=== PATIENT | female | born 1945 | race Caucasian/White ===

== ENCOUNTER → 2017-10-15 | Outpatient (CLI) | payer MEDICARE, OTHER | LOC: M.RAD 10-02 13:20 | DX: Z12.31 Encounter for screening mammogram for malignant neoplasm of breast (principal); M85.88 Other specified disorders of bone density and structure, other site; E28.8 Other ovarian dysfunction; N91.2 Amenorrhea, unspecified; Z78.0 Asymptomatic menopausal state ==

== ENCOUNTER → 2018-09-09 | Outpatient (CLI) | payer MEDICARE, OTHER ==
[2018-09-09 12:53] LABS: CREATININE 0.9 mg/dL (0.6-1.3)
== END ==
LOC: M.LAB 09-04 12:37
PROVIDERS: Orthopaedic Surgery
DX: M19.031 Primary osteoarthritis, right wrist (principal); M67.431 Ganglion, right wrist; G56.01 Carpal tunnel syndrome, right upper limb

== ENCOUNTER → 2018-11-03 | Day surgery (SDC) | payer MEDICARE, OTHER ==
[~2018-11-03] MED LIST: NORCO 5-325 TA1 EACH PO
--- NOTE | ~2018-11-03 | OP ---
[address] [address] OPERATIVE REPORT Name: DANNY WHITFIELD Blanca Room: [facility]#: [id number] Admission: 11/03/18 Attend Phys: Bipin Robbins DO Discharge: Date of : 49 Report #: [id number] THIS REPORT FOR: //name// CC: Bipin Melgoza DATE OF SERVICE: 11/03/2018 PREOPERATIVE DIAGNOSIS: Right volar ganglion cyst. POSTOPERATIVE DIAGNOSIS: Right volar ganglion cyst. PROCEDURE: Excision of right volar ganglion cyst. SURGEON: Bipin Robbins DO. TEACHER DRAMATICS: Lluvia Valladares DO. ANESTHESIA: General. ANTIBIOTICS: Ancef IV preoperatively. BLOOD LOSS: 10 mL. FLUIDS: 500 mL lactated Ringer's. COMPLICATIONS: None. SPECIMENS: Ganglion cyst sent for pathology and confirmed upon timeout. DRAINS: None. CONDITION: The patient is stable to PACU. INDICATIONS FOR PROCEDURE: The patient is a 72-year-old female who presents to [facility] for excision of volar ganglion cyst I have seen around several times in clinic. We went over treatment options with her as well as risks and complications associated with surgery. She wished to have surgery. Please see previous notes for full details of our discussion. She gave verbal and written consent to proceed. DESCRIPTION OF PROCEDURE: I marked the right upper extremity in the presence of the operative team members. Everyone agreed this was correct. She was taken to the operative suite where a briefing was performed indicating correct patient, procedure, site, antibiotics and that implants were present and sterile. All team members agreed. She was [place] [address] OPERATIVE REPORT Name: DANNY WHITFIELD Room: [facility]#: [id number] Admission: 11/03/18 Attend Phys: Bipin Robbins DO Discharge: Date of : 49 Report #: [id number] position, well padded and secured. General anesthetic was administered. A well-padded tourniquet was placed proximally on the right upper extremity and that extremity was sterilely prepped and draped in standard fashion. It should be noted that in the preoperative area, I performed a thorough Alphonse's test, which showed that she had good collateral flow through the ulnar artery. A timeout was performed indicating correct patient, procedure, site and antibiotics. All team members agreed. We marked out our incision. She had a history of carpal tunnel surgery many years ago. Faint outline of that incision was visible and while the cyst was involving that incision, it was a little radial to that, but we used that same incision. We Esmarched the extremity and insufflated the tourniquet at 250 mmHg. Scalpel was taken through skin and careful soft tissue dissection down, thus the cyst was readily found and began isolating this. Careful dissection was carried out circumferentially around the cyst. This was loculated and continued radially towards the radial artery, which we were aware of. It should be noted that I discussed the case with the vascular surgeon who was on standby in case needed. We released the tissue from around the cyst. We followed this down very carefully protecting any neurovascular structures along the way. The radial artery was identified and isolated and we removed any adhesions from this area very carefully. We were able to follow the cyst down and completely isolated and it appeared to be coming from the STT joint. Once we had full development of the cyst, we excised that cyst and sent off as specimen and confirmed this being handed off and the specimen timeout was performed. At that point in time, we then saw the hole in the STT capsule; however, this was a chronical and could not be repaired. At that point in time, we let down tourniquet. Minimal bleeding. Hemostasis was maintained. The radial artery could be palpated and there was no injury to the radial artery or any of its branches. The hand was warm and well perfused with good cap refill. We irrigated the surgical site with normal saline and closed this. Closure was with 4-0 nylon simple interrupted. A debriefing was performed. We confirmed the procedure, blood loss and that all counts were correct and final, the specimens were sent. All team members agreed. Sterile dressing of Xeroform gauze, 4 x 4s, Kerlix loosely applied and Chace wrap loosely applied. She was extubated and transferred off the operating table, taken to PACU in stable condition. POSTOPERATIVE COURSE AND EVALUATION: I spoke with her son and . Per her wishes addressed any questions they had. They were very thankful for my time and efforts. She was resting in PACU, stable vital signs, pain controlled. Dressing clean, dry and intact. She was fully neurovascularly intact in that extremity with no change compared to preoperative or clinic exam. She is to maintain the dressing clean, dry and intact. Specific discharge instructions were given to them both verbally and written in regards to any concerning signs or symptoms that would warrant immediate contact for followup. They know that [address] [address] OPERATIVE REPORT Name: DANNY WHITFIELD Room: [facility]#: [id number] Admission: 11/03/18 Attend Phys: Bipin Robbins DO Discharge: Date of : 49 Report #: [id number] they can call anytime with questions or concerns; otherwise, we will see back in 2 weeks. By: [id number] Robbins DO /nt
--- NOTE | 2018-11-05 14:07 | PATH ---
[address] [address] PATHOLOGY RPT PROCEDURE Name: DANNY ABAD Room: [facility]#: [id number] Admission: 11/03/18 Date of : 49 Discharge: Report #: [id number] Path Case #: [id number] [facility] Accession Number: [id number] . 01 Material submitted: . VOLAR GANGLION CYST RIGHT WRIST . 01 Clinical history: . Ganglion cyst right wrist . 02 Diagnosis: Soft tissue "ganglion cyst right wrist": - Ganglion cyst fibrous lined with mucoid material. - There is no evidence of malignancy. (SHA:pit 11/05/2018) QTP/11/05/2018 . 02 Electronically signed: . Mikel Wright MD, Pathologist NPI- [id number] . 01 Gross description: . Received in formalin labeled "Danny Abad, volar ganglion cyst right wrist," are three irregular fragments of pale yellow-turner soft tissue/possible capsular tissue ranging from 1.0 x 0.7 x 0.5 cm to 1.5 x 0.8 x 0.5 cm in greatest dimensions. All three fragments are bisected and submitted entirely in cassette A1. Partial fragmentation occurred upon sectioning. (DAC; 11/04/2018) XDC/XDC . 02 Pathologist provided ICD-10: M67.431 . 02 CPT . 205614 Specimen Comment: A courtesy copy of this report has been sent to Specimen Comment: [phone], . Specimen Comment: Report sent to / DR SAGE Performed at: [address], [place] [id number] MD Lance Eng MD Phone: [phone] Performed at: 02 [facility] [address], [place], [place] [id number] MD Aj Enrique MD Phone: [phone]
== END | disposition home or self-care (01) ==
LOC: M.SUR 14:28
DX: M67.431 Ganglion, right wrist (principal); Z98.890 Other specified postprocedural states